=== PATIENT | female | born 1975 | race Caucasian/White ===

== ENCOUNTER 2020-11-30 18:44 | Emergency (ER) | payer BC, OTHER ==
[~2020-11-30] VITALS: Ht 170.2 cm; Wt 152.9 kg
[~2020-11-30 18:44] MED LIST: METFORMIN HCL1000 MG PO; NORGESTREL-ETH1 EAC1 PO; XARELTO15 MG PO; XARELTO20 MG PO
[2020-11-30 21:09] VITALS: BP 138/97
== END 2020-11-30 21:11 | disposition home or self-care (01) ==
LOC: ER 19:01
DX: M25.561 Pain in right knee (principal); M79.661 Pain in right lower leg; Z86.718 Personal history of other venous thrombosis and embolism
CPT/HCPCS: 93971; 99282